=== PATIENT | male | born 1950 | race Two or more races ===

== ENCOUNTER 2024-02-01 18:26 | Emergency (ER) | payer SELFPAY ==
[2024-02-01 19:00] VITALS: RESP 18; TEMP 97.8; BMI 16.5
[2024-02-01] MEDS: ACETAMINOPHEN 325 MG TABLET (FP) PO ONE (19:19)
[2024-02-01] MEDS ORDERED: DIPHTH,PERTUSS(ACELL),TET 0.5 ML DISP.SYRIN IM ONE (19:22)
[2024-02-01] MEDS: DIPHTH,PERTUSS(ACELL),TET 0.5 ML DISP.SYRIN IM ONE (19:50)
[2024-02-01 21:09] VITALS: BP 134/76; PULSE 69
== END 2024-02-01 21:09 | disposition home or self-care (01) ==
LOC: JER 18:26
PROC: 3E0234Z Introduction of Serum, Toxoid and Vaccine into Muscle, Percutaneous Approach (ICD-10-PCS; principal; 2024-02-01)
DX: S00.83XA Contusion of other part of head, initial encounter (principal); S00.31XA Abrasion of nose, initial encounter; S00.511A Abrasion of lip, initial encounter; S50.811A Abrasion of right forearm, initial encounter; S60.512A Abrasion of left hand, initial encounter; S60.812A Abrasion of left wrist, initial encounter; S80.211A Abrasion, right knee, initial encounter; W01.198A Fall on same level from slipping, tripping and stumbling with subsequent striking against other object, initial encounter; Y93.01 Activity, walking, marching and hiking; Z23 Encounter for immunization
CPT/HCPCS: 70450-TC; 70486-TC; 72125-TC; 73090-TC-RT-FY; 73110-TC-RT-FY; 73130-TC-RT-FY; 73560-TC-RT-FY; 90715; 99284-25